=== PATIENT | male | born 1995 | race American Indian/Alaskan Native ===

== ENCOUNTER 2017-01-20 12:04 | Emergency (ER) | payer BC ==
[2017-01-20] MEDS ORDERED: MOTRIN PO ONE (18:49)
--- NOTE | 2017-01-20 18:54 | Emergency Department Report ---
ED Extremity Problem HPI - General Chief complaint: Extremity Injury, Upper Stated complaint: RT HAND INJURY Time Seen by Provider: 01/20/17 18:12 Source: patient Mode of arrival: Ambulatory Limitations: No Limitations - History of Present Illness Initial comments: PT states he fell on Saturday while playing basketball. PT states he injured his R hand. PT states he was jumping to make a shot, missed, and hit ground. PT states he felt a bone pop out of place. PT states he pushed the bone back in place. PT states on Saturday, he would feel that bone pop in and out. PT c/o hand swelling. PT states he called out of work two days in a row and he will need a work note, so he came to the ED. PT states his pain is 6.5/10 and is relieved with Motrin, however, last dose was 0500 today. MD Complaint: extremity pain -: Sudden Location: right, upper extremity History of Same: No Quality: constant Consistency: constant Improves with: nothing Worsens with: palpation Associated Symptoms: denies: chest pain, rash - Related Data Previous Rx's Medication Instructions Recorded Last Taken Type Acetaminophen/Codeine [Tylenol #3] 1 tab PO Q6H PRN #12 tab 01/20/17 Unknown Rx Ibuprofen [Motrin] 600 mg PO Q8H PRN #15 tablet 01/20/17 Unknown Rx Allergies Allergy/AdvReac Type Severity Reaction Status Date / Time No Known Allergies Allergy Verified 01/20/17 12:44 ED Review of Systems ROS: Stated complaint: RT HAND INJURY Other details as noted in HPI Comment: All other systems reviewed and negative Cardiovascular: denies: chest pain Gastrointestinal: denies: abdominal pain Musculoskeletal: as per HPI, joint swelling Skin: denies: change in color Neurological: denies: headache ED Past Medical Hx - Past Medical History Previous Medical History?: No - Surgical History Past Surgical History?: Yes Additional Surgical History: jaw - Social History Smoking Status: Never Smoker Substance Use Type: Alcohol - Medications Home Medications: Home Medications Medication Instructions Recorded Confirmed Last Taken Type Acetaminophen/Codeine [Tylenol #3] 1 tab PO Q6H PRN #12 tab 01/20/17 Unknown Rx Ibuprofen [Motrin] 600 mg PO Q8H PRN #15 tablet 01/20/17 Unknown Rx ED Physical Exam - General Limitations: No Limitations General appearance: alert, in no apparent distress - Head Head exam: Present: atraumatic, normocephalic - Eye Eye exam: Present: normal appearance. Absent: conjunctival injection - Neck Neck exam: Present: normal inspection, full ROM - Respiratory Respiratory exam: Present: normal lung sounds bilaterally. Absent: respiratory distress - Cardiovascular Cardiovascular Exam: Present: regular rate, normal rhythm - Expanded Upper Extremity Exam Right Forearm Wrist exam: Present: normal inspection, full ROM. Absent: tenderness, swelling Hand Wrist exam: Present: full ROM, tenderness, swelling, dislocation (palpable possible carpal dislocation, that pt can reduce) Vascular: Present: normal capillary refill - Back Exam Back exam: Present: normal inspection, full ROM - Neurological Exam Neurological exam: Present: alert, oriented X3, normal gait - Psychiatric Psychiatric exam: Present: normal affect, normal mood - Skin Skin exam: Present: warm, dry, intact ED Course Vital Signs 01/20/17 01/20/17 12:40 18:59 Temperature 97.9 F Pulse Rate 59 L Respiratory 16 16 Rate Blood Pressure 139/88 O2 Sat by Pulse 100 Oximetry - Reevaluation(s) Reevaluation #1: 01/20/17 19:12 PT also seen and examined by Dr Mandujano. Reevaluation #2: 01/20/17 19:50 PT aware of XR report and plan of care. PT aware he must follow up with ORTHO. PT given strict return precautions. Reevaluation #3: 01/20/17 21:43 pt awaiting splint. pt aware of plan of care Reevaluation #4: 01/20/17 22:15 Tech applied splint. PT NVI. PT has no questions. - Pulse Oximetry Interpretation Digit-Finger Initial Pulse Oximetry Readin Actions Taken: none ED Medical Decision Making - Radiology Data Radiology results: report reviewed, image reviewed R hand - nap - Differential Diagnosis dislocation, fracture, strain Critical Care Time: No Critical care attestation.: If time is entered above; I have spent that time in minutes in the direct care of this critically ill patient, excluding procedure time. ED Disposition Clinical Impression: Injury of right hand Qualifiers: Encounter type: initial encounter Qualified Code(s): S69.91XA - Unspecified injury of right wrist, hand and finger(s), initial encounter Disposition: DISCHARGED TO HOME OR SELFCARE Is pt being admited?: No Does the pt Need Aspirin: No Condition: Stable Instructions: Splint Care (ED), Finger Dislocation (ED), Hand Sprain (ED), RICE Therapy (ED) Additional Instructions: Call ortho tomorrow No driving or ETOH if you need to take Tylenol #3 to control your pain Prescriptions: Acetaminophen/Codeine [Tylenol #3] 1 tab PO Q6H PRN #12 tab PRN Reason: Pain , Severe (7-10) Ibuprofen [Motrin] 600 mg PO Q8H PRN #15 tablet PRN Reason: Pain Referrals: PRIMARY CARE, [Primary Care Provider] - 3-5 Days ABBIE KIMBLE MD [Staff Physician] - 3-5 Days Forms: Work/School Release Form(ED)
--- NOTE | 2017-01-20 19:25 | XRay Report ---
FINAL REPORT EXAM: XR HAND 3 RT HISTORY: pain/injury rt hand TECHNIQUE: 3 views right hand PRIORS: None. FINDINGS: No fracture is identified. No dislocation seen. Joint spaces are within normal limits. No erosive bony change identified. Carpal bones maintain normal alignment. Distal radius and ulna are intact. No radiopaque foreign bodies seen. IMPRESSION: Negative hand series
[2017-01-20 22:53] VITALS: BP 132/88
== END 2017-01-20 22:53 | disposition home or self-care (01) ==
LOC: ED 12:04
DX: S69.91XA Unspecified injury of right wrist, hand and finger(s), initial encounter (principal); X58.XXXA Exposure to other specified factors, initial encounter; Y93.67 Activity, basketball; Y92.310 Basketball court as the place of occurrence of the external cause; Y99.9 Unspecified external cause status
CPT/HCPCS: 99283

== ENCOUNTER 2017-01-25 05:51 | Day surgery (SDC) | payer BC ==
--- NOTE | 2017-01-25 06:52 | Anesthesia Consultation ---
Anesthesia Consult and Med Hx Date of service: 01/25/17 - Airway Anesthetic Teeth Evaluation: Good ROM Head & Neck: Adequate Mental/Hyoid Distance: Adequate Mallampati Class: Class I Intubation Access Assessment: Good - Pulmonary Exam CTA: Yes - Cardiac Exam Cardiac Exam: RRR - Pre-Operative Health Status ASA Pre-Surgery Classification: ASA2 - Pulmonary Hx Smoking: No Hx Asthma: Yes (CHILDHOOD) - Central Nervous System Hx Psychiatric Problems: No - Hematic Hx Sickle Cell Disease: No - Other Systems Hx Alcohol Use: Yes Hx Substance Use: No Hx Cancer: No
--- NOTE | 2017-01-25 06:53 | Anesthesia Day of Surgery ---
Anesthesia Day of Surgery - Day of Surgery Patient Examined: Yes Patient H&P Reviewed: Yes Patient is NPO: Yes
[2017-01-25] MEDS ORDERED: PEPCID PO NR (07:00)
[2017-01-25] MEDS ORDERED: VERSED IV NR (07:00)
[2017-01-25] MEDS ORDERED: LACTATED RINGERS 1,000 ML IV SCH (07:00)
[2017-01-25] MEDS ORDERED: DIPRIVAN 10 MG/ML IV ONE (07:12)
[2017-01-25] MEDS ORDERED: MARCAINE-EPI 0.5%-1:200,000 INFILTRATI ONE ×3 (07:26→07:44)
[2017-01-25] MEDS ORDERED: XYLOCAINE 1% 20 mL ONE (07:27)
[2017-01-25] MEDS ORDERED: XYLOCAINE 1% 20 mL INFILTRATI ONE ×2 (07:45)
[2017-01-25] MEDS ORDERED: XYLOCAINE MPF 2% ONE (07:57)
[2017-01-25] MEDS ORDERED: ZOFRAN ONE (07:57)
[2017-01-25] MEDS ORDERED: SUBLIMAZE ONE (07:59)
[2017-01-25] MEDS ORDERED: ZOFRAN IV PRN (08:00)
[2017-01-25] MEDS ORDERED: NORCO 5/325 PO PRN (08:00)
[2017-01-25] MEDS ORDERED: ANCEF/STERILE WATER 2 GM/20 ML IV NR (08:00)
[2017-01-25] MEDS ORDERED: DECADRON ONE (08:03)
--- NOTE | 2017-01-25 08:08 | Short Stay Summary ---
Short Stay Documentation Date of service: 01/25/17 - History H&P: obtained from office - Allergies and Medications Current Medications: Allergies No Known Allergies Allergy (Verified 01/20/17 12:44) Home Medications Medication Instructions Recorded Confirmed Last Taken Type Acetaminophen/Codeine [Tylenol #3] 1 tab PO Q6H PRN #12 tab 01/20/17 01/25/17 Rx Ibuprofen [Motrin] 600 mg PO Q8H PRN #15 tablet 01/20/17 01/24/17 01/24/17 04: 00 Rx Active Medications Cefazolin Sodium (Ancef/Sterile Water 2 Gm/20 Ml) 2 gm IV PREOP NR Famotidine (Pepcid) 20 mg PO PREOP NR Stop: 01/25/17 15:00 Last Admin: 01/25/17 07:12 Dose: 20 mg Hydromorphone HCl (Dilaudid) 0.5 mg IV Q10MIN PRN PRN Reason: Pain , Severe (7-10) Stop: 01/28/17 08:01 Lactated Ringer's (Lactated Ringers) 1,000 mls @ 100 mls/hr IV DIRECT KETTY Last Admin: 01/25/17 07:13 Dose: 100 mls/hr Midazolam HCl (Versed) 2 mg IV PREOP NR Stop: 01/25/17 23:59 Last Admin: 01/25/17 07:17 Dose: 2 mg - Brief post op/procedure progress note Date of procedure: 01/25/17 Pre-op diagnosis: dislocation 4 and 5 th metacarpals Post-op diagnosis: same Procedure: ORIF 4th and 5th metacarpal proximal dislocation Anesthesia: JOSEPH Surgeon: TAMMY THACKER Surgical Orderly: MEÑO BRASHER Estimated blood loss: none Pathology: none Specimen disposition: discarded Condition: stable - Disposition Condition at discharge: Stable Disposition: DISCHARGED TO HOME OR SELFCARE - Discharge Diagnoses (1) Dislocation of metacarpal (bone), proximal end of right hand, initial encounter Status: Acute Qualifiers: Encounter type: E Short Stay Discharge Plan Follow up with: PRIMARY CARE, [Primary Care Provider] - 7 Days
[2017-01-25] MEDS: DILAUDID IV PRN ×2 (08:35→08:50)
--- NOTE | 2017-01-25 09:34 | Post Anesthesia Evaluation ---
- Post Anesthesia Evaluation Patient Participated: Yes Airway Patent: Yes Stable Respiratory Function: Yes Nausea/Vomiting: No Temp > 96.8F: Yes Pain Manageable: Yes Adequeate Hydration: Yes Anesthesia Complications: No
[2017-01-25 10:23] VITALS: BP 135/87
--- NOTE | 2017-01-25 14:52 | Operative Report ---
PREOPERATIVE DIAGNOSIS: Dislocation, dorsal, closed fourth and fifth metacarpal at the carpometacarpal joint of the hand. POSTOPERATIVE DIAGNOSIS: Dislocation, dorsal, closed fourth and fifth metacarpal at the carpometacarpal joint of the hand. PROCEDURE: Open reduction and fixation. SURGEON: Declan Morrow MD CHAPLAIN: Grey Johnson RN ANESTHESIA: General with local anesthetic block. COMPLICATIONS: None. FINDINGS: The patient had instability with dislocated base of the metacarpals of the 4th and 5th fingers. PROCEDURE IN DETAIL: Once the patient was in surgical room, after prepping and draping the patient and timeout, procedure was carried out by first under fluoroscopy manipulation and reduction of the fracture was done. Once the dislocation was in place, this was fixed in position with a cross K-wire. Once this was done, an incision was carried out over the dorsum of the hand that measured about a centimeter in length. Blunt and sharp dissection was carried out without any problems, exposing the metacarpal base of the fifth metacarpal. A K-wire was then drilled from the metacarpal through the base of the metacarpal into the carpal area, this area was measured, it was overdrilled. Following this, by the insertion of a cannulated screw. The screw was inserted. It was checked under fluoroscopy. Once this was done, the cross K-wire was removed and the fracture dislocation was found to be stable. At this point, the procedure was terminated, wound irrigated. The wound closed with 2-0 Vicryl suture, 4-0 nylon suture and compression bandage applied. The patient tolerated the procedure well. There were no complications. JOB# [id number] CELE/JUAN
--- NOTE | 2017-01-26 09:55 | XRay Report ---
Right hand single fluoroscopic image: Findings: There is metallic screw noted across the base of the fifth metacarpal and the adjacent carpal bone. No dislocation seen in the single view available. Impression: Findings as detailed above.
== END 2017-01-25 10:20 | disposition home or self-care (01) ==
LOC: OR 05:51
DX: S62.314A Displaced fracture of base of fourth metacarpal bone, right hand, initial encounter for closed fracture (principal); S62.316A Displaced fracture of base of fifth metacarpal bone, right hand, initial encounter for closed fracture; J45.909 Unspecified asthma, uncomplicated; Z72.89 Other problems related to lifestyle; Z82.3 Family history of stroke; W22.8XXA Striking against or struck by other objects, initial encounter; Y93.67 Activity, basketball
CPT/HCPCS: 26615; 73120; C1713; J0690; J1100; J1170; J2250; J2405; J2704; J7120; J3010